=== PATIENT | male | born 1965 | race Caucasian/White ===

== ENCOUNTER 2020-11-02 06:01 | Day surgery (SDC) | payer MEDICARE ==
[~2020-11-02] VITALS: Ht 193 cm; Wt 70.0 kg
[2020-11-02] MEDS ORDERED: CHLORHEXIDINE 15 ML UDC ONE (06:19)
[2020-11-02] MEDS ORDERED: CHLORHEXIDINE 15 ML UDC PO ONE (06:30)
[2020-11-02] MEDS ORDERED: LACTATED RINGERS 1,000 ML IV SCH (06:30)
[2020-11-02] MEDS ORDERED: PROPOFOL 50 ML ONE (06:43)
[2020-11-02 06:53] VITALS: BP 135/84
[2020-11-02] MEDS ORDERED: MIDAZOLAM 1 MG/ML, 2ML ONE (07:00)
[2020-11-02] MEDS ORDERED: GABA-827 PO (07:07)
[2020-11-02] MEDS ORDERED: INSU100C SQ-INSULIN (07:07)
[2020-11-02] MEDS ORDERED: LANTUS (07:07)
[2020-11-02] MEDS ORDERED: CREON (07:07)
[2020-11-02] MEDS ORDERED: AMLO-150 PO (07:07)
[2020-11-02] MEDS ORDERED: OMEP40CA8 PO (07:07)
[2020-11-02] MEDS ORDERED: [UNRECOGNIZED DRUG - CODE] PO (07:07)
[2020-11-02] MEDS ORDERED: DULO30CA2 PO (07:07)
[2020-11-02] MEDS ORDERED: DIPHENHYDRAMINE 50 MG/ML, 1ML IVPush PRN (08:30)
[2020-11-02] MEDS ORDERED: HYDROcodone/APAP 7.5-325MG/15ML UDC PO PRN (08:30)
[2020-11-02] MEDS ORDERED: MEPERIDINE/PF 25MG/0.5ML IVPush PRN (08:30)
[2020-11-02] MEDS ORDERED: METHOCARBAMOL 1,000 MG in DEXTROSE 5% 100 ML IV PRN (08:30)
[2020-11-02] MEDS ORDERED: ONDANSETRON 2MG/ML, 2ML IVPush PRN (08:30)
[2020-11-02] MEDS ORDERED: FENTANYL PF 100 MCG/2ML IV PRN (08:30)
[2020-11-02] MEDS ORDERED: HYDROmorphone 1 MG/ML, 1ML INJ IVPush PRN (08:30)
[2020-11-02] MEDS ORDERED: PROMETHAZINE 25 MG/ML, 1ML IVPush PRN (08:30)
[2020-11-02] MEDS ORDERED: LORazepam 2 MG/ML, 1ML IVPush PRN (08:30)
[2020-11-02] MEDS ORDERED: FENTANYL PF 100 MCG/2ML ONE (08:33)
== END 2020-11-02 09:30 | disposition home or self-care (01) ==
LOC: OUT 06:01 → EDSEX 07:30 → OUT 09:30
PROVIDERS: ATTEND Internal Medicine Geriatric Medicine
DX: K31.5 Obstruction of duodenum (principal); E11.9 Type 2 diabetes mellitus without complications; K21.9 Gastro-esophageal reflux disease without esophagitis; I10 Essential (primary) hypertension; Z20.822 Contact with and (suspected) exposure to COVID-19; Z79.4 Long term (current) use of insulin; Z79.899 Other long term (current) drug therapy; Z88.0 Allergy status to penicillin
CPT/HCPCS: 43239; 43245; 82962; 87635; 88305; C1725; J2250; J2704; J3010; J7120